=== PATIENT | female | born 1990 | race Caucasian/White ===

== ENCOUNTER 2016-12-31 16:10 | Observation (INO) | payer MEDICAID, SELFPAY ==
[2016-12-31 16:56] VITALS: BP 112/70; PULSE 75; RESP 18; TEMP 36.9
[2016-12-31 16:59] VITALS: BMI 21.4
[2016-12-31 17:01] VITALS: BMI 21.5
[2016-12-31] MEDS: chlordiazePOXIDE 25 MG Capsule PO ×2 (17:57→22:11)
[2016-12-31] MEDS: Methocarbamol 750 MG Tablet PO (17:57)
[2016-12-31] MEDS: Ibuprofen 400 MG Tablet 800 MG PO (17:58)
[2016-12-31] MEDS: Buprenorphine HCl 2 MG TAB.SUBL SL (17:58)
[2016-12-31] MEDS: Carbidopa/Levodopa 25/100 Tablet PO (17:58)
[2016-12-31] MEDS: cloNIDine HCl 0.1 MG Tablet 0.2 MG PO (17:58)
[2016-12-31] MEDS: Dicyclomine 10 MG Capsule 20 MG PO (17:58)
[2016-12-31] MEDS: QUEtiapine 25 MG Tablet PO (17:58)
--- NOTE | 2016-12-31 18:58 | PCM.HP.STD ---
Problem List (1) Opiate withdrawal Status: Acute (2) Opiate abuse-heroin Status: Chronic History of Present Illness Date of Admission: 12/31/16 Chief Complaint: Opiate withdrawal, heroin abuse The patient is a 26 year old F is directly admitted into the medical stabilization program at [facility] due to opiate withdrawal. Patient has had heroin addiction for 10 years, she last used heroin 7 PM yesterday. Patient uses IV heroin. Patient has already been through 2 detox programs this year- in April and in June. Today patient complains of anxiety feelings, restless legs, diaphoresis, stomach cramps, and generalized pain everywhere. Patient is positive for nausea but has had no vomiting. 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 Denies: Anorexia, Chills, Fever Eyes: Denies: Blurred vision, Cataracts, Conjunctivae Inflammation, Double vision, Drainage HEENT: Denies: Difficulty Hearing, Difficulty Swallowing, Dysphasia, Ear Pain, Eye Pain, Head Aches, Hearing Changes, Nasal bleeding, Nasal Congestion, Post Nasal Drip Cardiovascular: Denies: Chest Pain, Claudication, Chest Pressure, Chest Tightness, Edema, Heaviness, Orthopnea, Palpitations, Paroxysmal Noc. Dyspnea, Syncope Respiratory: Denies: Cough, Hemoptysis, Pleuritic Pain, Shortness of Breath, Shortness of breath upon exertion, Sputum production, Wheezing Gastrointestinal: Reports: Abdominal Pain, Nausea. Denies: Constipation, Diarrhea, Dyspepsia, Hematemesis, Hematochezia, Melena, Vomiting Genitourinary: Denies: Dysuria, Frequency, Hematuria, Incontinence, Nocturia, Retention Gynecological: Denies: Breast symptoms Musculoskeletal: Reports: Muscle pain, - - Patient complains of a soreness of her left middle finger. Denies: Arm Pain, Back Pain, Foot Pain, Hand Pain, Joint stiffness, Joint swelling, Joint Tenderness Skin: Denies: Dryness, Jaundice, Pruritis, Rash Neurological: Denies: Balance problems, Blurred vision, Double vision, Change in Speech, Slurred speech, Difficulty swallowing, Focal weakness, Headaches Psychiatric: Reports: Anxiety. Denies: Depression, Homicidal Ideations, Suicidal Ideations Endocrine: Denies: Change in Body Habitus, Heat/ Cold Intolerance, Polyuria, Hx of Irradiation VTE Information - Inpt Only VTE Present on Admission: No VTE Mechan Device Prophylaxis: None VTE Pharm Prophylaxis ordered?: No Reason prophylaxis not ordered:: Treatment Not Indicated - low risk for VTE Patient Problems: Active and Suspected Problems Opiate withdrawal (Acute) - Physical Exam General: Alert, Oriented x3, Cooperative, - - Patient appears anxious and uncomfortable, she is diaphoretic HEENT: Atraumatic, PERRLA, EOMI, Normocephalic Oral: Moist Mucosa Neck: Supple, No JVD, Negative Carotid Bruits, No Nuchal Rigidity, Trachea Midline, Thyroid Normal Size and Texture Lungs: Clear to auscultation, Normal air movement, No rhonchi, No wheeze, No rales Cardiovascular: Regular rate, Regular Rhythm, Normal S1, Normal S2, No murmurs, No Ectopic Activity, PMI Normal, No rub noted, No Gallop Abdomen: Bowel Sounds Present, Soft, Non Tender, Non-Distended, No hernias noted Extremities: No clubbing, No cyanosis, No edema, Capillary Refill Less than 3 Seconds, - - Patient has a small area on the dorsum of her left middle finger which is hard to palpation and slightly tender, patient also has a small area at the base of her right ring finger which appears reddened and pustular been no discharge from the area was able to be elicited from the right ring finger Skin: - - Patient has multiple ecchymotic areas over her skin where she has injected, patient has scar tissue over her left upper arm Musculoskeletal: No Muscle Wasting Neurological: Cranial nerves II-XII grossly intact, Neuro grossly intact, Muscle tone normal, Sensory exam intact to light touch and pain, Coordination normal Psych/Mental Status: Anxious, Restless Vital Signs Temp Pulse Resp BP Pulse Ox 98.4 F 75 18 112/70 12/31/16 16:56 12/31/16 16:56 12/31/16 16:56 12/31/16 16:56 Weight: 53.3 kg Body Mass Index (BMI) 21.4 Assessment/Plan Active and Suspected Problems Opiate withdrawal (Acute) #1 acute opiate withdrawal-patient was admitted into the medical stabilization program on MedSurg 2, order templates were used #2 chronic heroin abuse #3 indurated left middle finger-I am not sure this is infected, I choose to place the patient on Vibramycin, she had been on Bactrim for short period of time in November but she quit taking this medication because it upset her stomach. #4 indurated area to the base of her right ring finger, I could not elicit any pus from the area, again I placed patient on oral Vibramycin #5 history of anxiety disorder-patient states she takes Xanax twice a day, she is not sure the dose, but she has not had Xanax in over 5 days, I have elected not to place her back on Xanax at this time. 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
[2016-12-31] MEDS: Acetaminophen 325 MG Tablet 650 MG PO (20:36)
[2016-12-31] MEDS: cloNIDine HCl 0.1 MG Tablet PO (20:45)
[2016-12-31 20:46] VITALS: BP 105/71; PULSE 63; RESP 18; TEMP 36.4
[2016-12-31] MEDS: traZODone 50 MG Tablet PO (22:11)
[2016-12-31] MEDS: Doxycycline 100 MG CAPSULE PO (22:11)
[2017-01-01] MEDS: cloNIDine HCl 0.1 MG Tablet PO ×2 (00:03→09:38)
[2017-01-01] MEDS: Methocarbamol 750 MG Tablet PO ×2 (00:03→06:17)
[2017-01-01] MEDS: Buprenorphine HCl 2 MG TAB.SUBL SL ×3 (02:20→17:01)
[2017-01-01] MEDS: Ibuprofen 400 MG Tablet 800 MG PO ×2 (02:20→11:58)
[2017-01-01] MEDS: Carbidopa/Levodopa 25/100 Tablet PO ×2 (02:21→11:58)
[2017-01-01] MEDS: Dicyclomine 10 MG Capsule 20 MG PO (02:21)
[2017-01-01] MEDS: chlordiazePOXIDE 25 MG Capsule PO ×4 (02:21→17:02)
[2017-01-01 02:23] VITALS: BP 90/58; PULSE 56; RESP 18; TEMP 36.6
[2017-01-01 06:12] VITALS: BP 104/52; PULSE 62; RESP 18; TEMP 36.4
[2017-01-01] MEDS: QUEtiapine 25 MG Tablet PO ×2 (06:17→17:01)
[2017-01-01 09:29] VITALS: BP 100/59; PULSE 87; RESP 16; TEMP 36.8
[2017-01-01] MEDS: Acetaminophen 325 MG Tablet 650 MG PO ×2 (09:37→20:56)
[2017-01-01] MEDS: Doxycycline 100 MG CAPSULE PO ×2 (09:38→20:57)
--- NOTE | 2017-01-01 11:00 | PN_ITS ---
Patient Problems: Active and Suspected Problems Opiate withdrawal (Acute) Subjective: 26-year-old female with past medical history of intravenous drug use/IV heroin for 10 years. Uses 1-2 GM/day. Significant other has never used drugs. She has a 5 YO child and she has joint custody with the father. She does have a hx of HEP C and has never been treated. She was at [facility] this [facility] for 3 days and never followed up for OP therapy for substance abuse. She plans on getting counselling at an OP treatment program at [place]. Does not want inpt treatment at this time. She did not sleep well last night. No N/V/D and does not c/o abdominal cramping. She is c/o RLS. - Physical Exam General: Alert, Oriented x3, Cooperative, - - having muscle spasms in the legs and restless leg HEENT: Atraumatic, PERRLA, EOMI, Normocephalic Oral: Moist Mucosa Neck: Supple, Trachea Midline Lungs: Clear to auscultation Cardiovascular: Regular rate, Regular Rhythm, Normal S1, Normal S2, No Gallop Abdomen: Bowel Sounds Present, Soft, Non Tender, Non-Distended Extremities: No clubbing, No cyanosis, No edema Skin: No rashes, No breakdown Neurological: Cranial nerves II-XII grossly intact, Neuro grossly intact Psych/Mental Status: Normal Affect, Appropriate Vital Signs Temp Pulse Resp BP Pulse Ox 98.3 F 87 16 100/59 01/01/17 09:29 01/01/17 09:29 01/01/17 09:29 01/01/17 09:29 Weight: 117 lb 8.102 oz Body Mass Index (BMI) 21.4 Intake and Output for Last 24 Hours 12/30/16 12/31/16 01/01/17 23:59 23:59 23:59 Intake Total 1800 Balance 1800 Assessment/Plan Active and Suspected Problems Opiate withdrawal (Acute) Impressions 1. acute withdrawal from opiates 2. IVDU for 10 years.....use 1-2 GM of Heroin daily 3. Hep C 4. chronic insomnia - tell me she takes a sleeping pill but, she can not recall the name Increase the HS Trazodone to 150mg DC the methocarbamol and start gabapentin 300 mg p.o. 3 times daily for 6 doses. Continue with the [facility] protocol for opiate withdrawal. CBC and CMP.
[2017-01-01] MEDS: Gabapentin 300 MG Capsule PO ×2 (11:58→17:02)
[2017-01-01 16:58] VITALS: BP 86/56; PULSE 63; RESP 18; TEMP 36.7
[2017-01-01] MEDS: traZODone 50 MG Tablet 150 MG PO (20:56)
[2017-01-01 20:59] VITALS: BP 90/54; PULSE 67; RESP 18; TEMP 36.5
[2017-01-02] VITALS (7 sets, daily range): BP systolic 92–109; BP diastolic 52–65; PULSE 69–86; RESP 15–18; TEMP 36.3–36.4; O2SAT 98–100
[2017-01-02] MEDS: cloNIDine HCl 0.1 MG Tablet PO ×2 (00:47→18:17)
[2017-01-02] MEDS: chlordiazePOXIDE 25 MG Capsule PO ×3 (00:48→18:17)
[2017-01-02] MEDS: Ibuprofen 400 MG Tablet 800 MG PO ×2 (00:48→12:49)
[2017-01-02] MEDS: Carbidopa/Levodopa 25/100 Tablet PO ×3 (00:48→18:17)
[2017-01-02] MEDS: Buprenorphine HCl 2 MG TAB.SUBL SL ×3 (01:21→22:11)
--- NOTE | 2017-01-02 07:44 | PCM.PN.HOSP ---
Patient Problems: Active and Suspected Problems Opiate withdrawal (Acute) Subjective: Patient was seen and examined. Complains of chills and states she is not able to take the Clonidine on account of low blood pressure. Complains of severe breathlessness in both legs as well as cramps. Denies any nausea or vomiting but still has not been able to eat. Denies any fever or chills or cramps in his abdomen. Says that the gabapentin started yesterday is not helping. Objective: Physical Exam General: Alert, Oriented x3, Cooperative, - - having muscle spasms in the legs and restless leg HEENT: Atraumatic, PERRLA, EOMI, Normocephalic Oral: Moist Mucosa Neck: Supple, Trachea Midline Lungs: Clear to auscultation Cardiovascular: Regular rate, Regular Rhythm, Normal S1, Normal S2, No Gallop Abdomen: Bowel Sounds Present, Soft, Non Tender, Non-Distended Extremities: No clubbing, No cyanosis, No edema Skin: No rashes, No breakdown Neurological: Cranial nerves II-XII grossly intact, Neuro grossly intact Psych/Mental Status: Normal Affect, Appropriate Vitals/I&O's: Vital Signs Temp Pulse Resp BP Pulse Ox 97.6 F 86 18 101/65 01/02/17 00:50 01/02/17 00:50 01/02/17 00:50 01/02/17 00:50 Weight: 53.3 kg Body Mass Index (BMI) 21.4 Intake and Output for Last 24 Hours 12/31/16 01/01/17 01/02/17 23:59 23:59 23:59 Intake Total 1800 Balance 1800 Current Medications Acetaminophen (Tylenol) 650 mg PO Q4H PRN PRN PRN Reason: Temp>99.1F Last Admin: 01/01/17 20:56 Dose: 650 mg Buprenorphine HCl (Buprenorphine Hcl) 2 mg SL Q8H MEMO PRN Reason: Taper Stop: 01/03/17 21:44 Last Admin: 01/02/17 01:21 Dose: 2 mg Carbidopa/Levodopa (Sinemet) 1 tablet PO Q8H PRN PRN PRN Reason: RESTLESSNESS Last Admin: 01/02/17 00:48 Dose: 1 tablet Chlordiazepoxide (Librium) 25 mg PO Q6H PRN PRN PRN Reason: Mod-Sev Anxiety (score 2-3/3) Last Admin: 01/02/17 00:48 Dose: 25 mg Clonidine (Catapres) 0.1 mg PO Q2H PRN PRN Reason: Hot/Cold Sweats or Anxiety Last Admin: 01/02/17 00:47 Dose: 0.1 mg Dicyclomine HCl (Bentyl) 20 mg PO Q6H PRN PRN PRN Reason: Abdomnial Discomfort Last Admin: 01/01/17 02:21 Dose: 20 mg Doxycycline Monohydrate (Doxycycline) 100 mg PO BID [facility] Last Admin: 01/01/17 20:57 Dose: 100 mg Gabapentin (Neurontin) 300 mg PO TIDCM [facility] Stop: 01/03/17 08:01 Last Admin: 01/01/17 17:02 Dose: 300 mg Hydroxyzine Pamoate (Vistaril) 50 mg PO Q6H PRN PRN PRN Reason: Mild Anxiety (score 1/3) Last Admin: 01/01/17 20:57 Dose: 50 mg Ibuprofen (Motrin) 800 mg PO Q8H PRN PRN PRN Reason: Mild-Moderate Pain (1-5/10) Last Admin: 01/02/17 00:48 Dose: 800 mg Nicotine (Nicoderm Cq (Pbkc)) 21 mg TRANSDERM. DAILY [facility] Last Admin: 01/01/17 11:59 Dose: 21 mg Nutritional Formula (Lactose Free) (Ensure Enlive) 120 ml PO 4X/DAY [facility] Last Admin: 01/01/17 20:57 Dose: Not Given Ondansetron HCl (Zofran Odt) 4 mg PO Q6H PRN PRN PRN Reason: NAUSEA Quetiapine Fumarate (Seroquel) 25 mg PO Q6H PRN PRN PRN Reason: Moderate Anxiety (score 2/3) Last Admin: 01/01/17 17:01 Dose: 25 mg Trazodone HCl (Desyrel) 150 mg PO QHS [facility] Last Admin: 01/01/17 20:56 Dose: 150 mg Assessment/Plan Active and Suspected Problems Opiate withdrawal (Acute) 1. acute withdrawal from opiates, complains of leg cramps, started on gabapentin yesterday, helping, will add Mirapex, continue per [facility] protocol 2. IVDU for 10 years 3. Hep C, chronic, needs to be followed up in the outpatient 4. chronic insomnia 5. Disposition: We will discharge in the next 24 hours
[2017-01-02] MEDS: Acetaminophen 325 MG Tablet 650 MG PO (07:58)
[2017-01-02] MEDS: Gabapentin 300 MG Capsule PO ×3 (07:58→18:17)
[2017-01-02] MEDS: Doxycycline 100 MG CAPSULE PO ×2 (09:45→22:11)
[2017-01-02] MEDS: QUEtiapine 25 MG Tablet PO ×2 (09:53→22:11)
[2017-01-02] MEDS: Pramipexole Di-HCl 0.25 MG Tablet PO ×2 (13:54→23:44)
[2017-01-02] MEDS: Ondansetron ODT 4 MG Tablet PO (13:54)
[2017-01-02] MEDS: traZODone 50 MG Tablet 150 MG PO (23:33)
[2017-01-03 02:00] VITALS: RESP 15
[2017-01-03 06:00] VITALS: RESP 15
[2017-01-03] MEDS: Gabapentin 300 MG Capsule PO (08:08)
[2017-01-03] MEDS: cloNIDine HCl 0.1 MG Tablet PO (08:08)
[2017-01-03 08:09] VITALS: BP 90/61; PULSE 58; RESP 16; TEMP 35.5; O2SAT 99
--- NOTE | 2017-01-03 08:37 | DS.PCM_ITS ---
Discharge Date and Diagnosis - Problem List Patient Problems: Active and Suspected Problems Opiate withdrawal (Acute) Date of Admission: 12/31/16 Date of Discharge: 01/03/17 - Primary Discharge Diagnosis Active and Suspected Problems Opiate withdrawal (Acute) - Secondary Discharge Diagnosis Chronic Problems Opiate abuse-heroin (Chronic) Hospital Course and Treatment None Operations: None Procedures: None Summary of Care Provided: The patient is a 26 year old F with history of heroin abuse was admitted into the medical stabilization program at [facility] secondary to opiate withdrawal. Patient admitted to heroin addiction for more than 10 years , last used heroin the night before admission. Admitted to having gone through to detox program twice - April and June. She complained of anxiety, restless leg, diaphoresis, abdominal cramps and generalized pain. Patient continues to complain of restless leg and was given Mirapex. Active management was as follows: 1. acute withdrawal from opiates, complained predorminantly of leg cramps, started on gabapentin which did not help, continued on Mirapex, other management was per [facility] protocol. 2. IVDU for 10 years, counselled on stopping. 3. Hep C, chronic, needs to be followed up in the outpatient. student accounts manager/SW will give patient list of PCP. Discharge Diet: No Restrictions Discharge Activity: Return to Normal Activity Home Medications: Medications to take at Discharge No Known/Unobtainable [No Known Home Medications] 12/31/16 Additional Instructions: Follow-up with PCP in 1-2 weeks after discharge Disposition: Home Minutes spent on discharge:: 20 Patient Condition:: Stable Meaningful Use Info Meaningful Use Diagnoses (Choose all that apply): None applicable
--- NOTE | 2017-01-03 08:37 | PCM.DC ---
- Discharge Diagnoses Current Active Problems: Current Active and Chronic Problems Opiate withdrawal (Acute) Opiate abuse-heroin (Chronic) Reason(s) for Visit for Discharge Instructions: medical stabilization for opiate withdrawal You will use the following diet at home:: No restrictions, Regular Your food should be the consistency of: Regular Your liquids should be the consistency of: Regular/Thin Discharge Activity: Return to Normal Activity Additional Instructions: Follow-up with PCP in 1-2 weeks after discharge Allergies/Adverse Reactions: Allergies shellfish derived Adverse Reaction (Verified 12/31/16 16:57) Unknown Medications to take at Discharge No Known/Unobtainable [No Known Home Medications] 12/31/16 Proposed Discharge Date: 01/03/17
[2017-01-03] MEDS: Buprenorphine HCl 2 MG TAB.SUBL SL (09:12)
--- NOTE | 2017-01-03 13:37 | CASEMGMT ---
Physician asked SW to give pt a list of PCP's. Pt has left, SW looked up PCP's in patient's geographic area that take pt's insurance, mailed it to her. No further needs. NALINI Alegria, [employer]CHASING AGENT
== END 2017-01-03 11:46 | disposition home or self-care (01) | DRG 773 ==
LOC: MS2 05-27 07:53
PROVIDERS: Admitting Provider Internal Medicine; Visit Provider Internal Medicine
DX: F11.23 Opioid dependence with withdrawal (principal); F17.210 Nicotine dependence, cigarettes, uncomplicated; B18.2 Chronic viral hepatitis C; F41.9 Anxiety disorder, unspecified; G62.9 Polyneuropathy, unspecified; R23.4 Changes in skin texture; F51.04 Psychophysiologic insomnia
CPT/HCPCS: 97802; 99218; G0378; G0379